=== PATIENT | male | born 1990 | race Caucasian/White ===

== ENCOUNTER 2018-02-21 19:17 | Emergency (ER) | payer SELFPAY ==
[~2018-02-21 19:17] MED LIST: TOBR.3%O OS
[2018-02-21 19:39] VITALS: BP 119/64; PULSE 84; RESP 16; TEMP 102.2; O2SAT 98
[2018-02-21] MEDS ORDERED: ACETAMINOPHEN 325 MG TAB PO ONE (20:30)
[2018-02-21] MEDS ORDERED: IBUPROFEN 800 MG TAB PO ONE (20:30)
[2018-02-21] MEDS ORDERED: VENTAER INH (20:32)
[2018-02-21] MEDS ORDERED: ZITHTAB PO (20:32)
[2018-02-21] MEDS ORDERED: PRED10PA PO (20:32)
--- NOTE | 2018-02-21 20:37 | PD ---
HPI Chief Complaint: Cold / Flu Symptoms Time Seen by Provider: 20:25 Travel History International Travel<30 days: No Contact w/Intl Traveler<30days: No Traveled to known affect area: No History of Present Illness HPI Patient comes into the emergency department complaining of cold-like symptoms ongoing for 2 weeks. Patient reports productive cough with greenish phlegm, generalized body aches, and nonbloody nonbilious posttussive emesis occasionally. Patient denies any known sick contacts. Patient reports taking DayQuil a week and a half ago and a dose of ibuprofen last night. Patient denies doing anything else for this. Patient reports subjective fevers up until last night when they finally found a thermometer and found to have a temperature of 103, which is when he was given Tylenol. Patient denies any chest pain, shortness of breath, sore throat, ear pain, headache, neck pain, loss change in bowel or bladder, or being seen for this previously. Denies anything making symptoms worse. Patient reports he has had cut back on smoking secondary to the cough. PFSH Past Medical History Medical History: Denies Significant Hx Diminished Hearing: No Musculoskeletal: Yes (LUMBAR) Immunizations Current: Yes Past Surgical History Tonsillectomy: Yes Social History Alcohol Use: Yes Tobacco Use: Yes (1PPD) Substance Use: No Allergies-Medications (Allergen,Severity, Reaction): Coded Allergies: No Known Allergies (Unverified Adverse Reaction, Unknown, 02/21/18) Reported Meds & Prescriptions Reported Meds & Active Scripts Active Ventolin Hfa 18 GM Inh (Albuterol Sulfate) 90 Mcg/Act Aer 2 Puff INH Q4H PRN Zithromax Z-Jan (Azithromycin) 250 Mg Dspk 250 Mg PO DIRECTED 500 MG (2 tabs) day 1, then 1 tab days 2-5. Prednisone (21) 10 mg tab Dose Pack (Prednisone) 10 Mg Pack 10 Mg PO DIRECTED Tobrex Opth Oint (Tobramycin Sulfate) 3.5 Gm Oint 1 Dose OS Q6 7 Days Review of Systems Except as stated in HPI: all other systems reviewed are Neg Physical Exam Narrative GENERAL: Well-developed, well nourished, in no acute distress, and non-ill appearing. SKIN: Focused skin assessment warm and dry. HEAD: Atraumatic. Normocephalic. EYES: Pupils equal and round. EOMI. No scleral icterus. No injection or drainage. ENT: No nasal bleeding or discharge. Mucous membranes pink and moist. Tympanic membranes pearly vickers bilaterally. Posterior pharynx nonerythematous without exudate. Uvula is midline. No tenderness to facial sinuses to palpation. NECK: Trachea midline. No cervical lymphadenopathy. Supple. No nuclear rigidity. CARDIOVASCULAR: Regular rate and rhythm. No murmur appreciated. RESPIRATORY: No accessory muscle use. No respiratory distress. Clear to auscultation. Breath sounds equal bilaterally. Dry cough noted on exam. MUSCULOSKELETAL: No obvious deformities. No clubbing. No cyanosis. No edema. Full range of motion. NEUROLOGICAL: Awake and alert. No obvious cranial nerve deficits. Motor grossly within normal limits. Normal speech. PSYCHIATRIC: Appropriate mood and affect; insight and judgment normal. Data Data Last Documented VS Vital Signs Date Time Temp Pulse Resp B/P (MAP) Pulse Ox O2 Delivery O2 Flow Rate FiO2 02/21/18 19:39 102.2 84 16 119/64 (82) 98 Orders Orders Ibuprofen (Motrin) (02/21/18 20:30) Acetaminophen (Tylenol) (02/21/18 20:30) Ed Discharge Order (02/21/18 20:38) [facility] Medical Decision Making Medical Screen Exam Complete: Yes Emergency Medical Condition: Yes Differential Diagnosis URI, viral syndrome, bronchitis, pneumonia Narrative Course Patients symptom complex is consistent with bronchitis. The patient is non-ill appearing and is in no respiratory distress and comfortable. The patient moves air well and oxygen saturations are normal. There is no clinical evidence to suggest pneumonia at this time. Plan of care and management were discussed with the patient who agreed with plan. The patient was instructed to follow up with their physician and instructed to return if worsens, progressively worsening shortness of breath or difficulty breathing, persistent fever, chest pains or discomfort, inability to keep medication or fluids down with or without vomiting , or as needed. Patient in no obvious distress upon re-evaluation. Patient was asked if they wanted to speak to my attending, which the patient did not wish to do at this time. Any questions/concerns in reference to patient diagnosis/condition discussed and clarified prior to patient's discharge. Reinforced sheer importance of close follow up with patient's primary physician or primary care clinic. Instructed patient to return to ED immediately, if symptoms return/ worsen. Patient showed understanding of above instructions. Further instructions and recommendations were detailed in discharge paperwork. Patient ambulated without difficulty out of ED at discharge. Diagnosis Primary Impression: Bronchitis Referrals: [facility] Patient Instructions: Acute Bronchitis (ED), General Instructions Additional Instructions: Follow-up with your primary care physician in 3-5 days for reevaluation. Take all medication as prescribed. Use [id number] Tylenol and ibuprofen as needed for pain and/or fever control. Follow instructions on the packaging. Drink plenty of non-caffeinated and nonalcoholic fluids. Return to the emergency department if symptoms get worse. Med/Other Pt SpecificInfo: Prescription(s) given Scripts Albuterol 18 GM Inh (Ventolin Hfa 18 GM Inh) 90 Mcg/Act Aer 2 PUFF INH Q4H Y for SHORTNESS OF BREATH, #1 INHALER 0 Refills Prov: Carmela Khanna DO 02/21/18 Azithromycin (Zithromax Z-Jan) 250 Mg Dspk 250 MG PO DIRECTED for Infection, #1 DSPK 0 Refills 500 MG (2 tabs) day 1, then 1 tab days 2-5. Prov: Carmela Khanna DO 02/21/18 Prednisone (21) 10 mg tab Dose Pack (Prednisone (21) 10 mg tab Dose Pack) 10 Mg Pack 10 MG PO DIRECTED for Inflammation, #1 DSPK 0 Refills Prov: Carmela Khanna DO 02/21/18 Disposition: 01 DISCHARGE HOME Condition: Stable Arnaldo Ragland February 21, 2018 20:37
== END 2018-02-21 20:53 | disposition home or self-care (01) ==
LOC: NEPK 19:17
DX: J40 Bronchitis, not specified as acute or chronic (principal); F17.210 Nicotine dependence, cigarettes, uncomplicated
CPT/HCPCS: 99283